=== PATIENT | female | born 1990 | race Caucasian/White ===

== ENCOUNTER 2018-11-22 18:06 | Emergency (ER) | payer MEDICAID, OTHER ==
[~2018-11-22] VITALS: Ht 152.4 cm; Wt 68.0 kg
[~2018-11-22 18:06] MED LIST: PREN-234 PO
[2018-11-22 18:28] VITALS: BP 121/70
--- NOTE | 2018-11-22 19:05 | NUR ---
PT BIB FAMILY FOR COUGH X3 WEEKS. PT REPORTS PRODUCTIVE COUGH WITH WHITE FROTHY SPUTUM. RR SYMMETRICAL, NON-LABORED, CRACKLES IN LEFT LOWER LOBE. PT REPORTS 7/10 THROBBING PAIN IN HEAD, THROAT, AND CHEST WITH COUGH. PT REPORTS REOCCURING FEVER X3 WEEKS, PT AFEBRILE AT THIS TIME. PT DENIES N/V/D. VSS. ER MD TO SEE PT.
[2018-11-22 20:10] VITALS: BP 124/71
--- NOTE | 2018-11-22 20:10 | NUR ---
Patient discharged with v/s stable. Written and verbal after care instructions given and explained. Patient alert, oriented and verbalized understanding of instructions. Carried with steady gait. All questions addressed prior to discharge. ID band removed. Patient advised to follow up with PMD. Rx of PREDNISONE, ZITHROMAX, ALBUTEROL, DIMETAPP, AND ALTAMIST given. Patient educated on indication of medication including possible reaction and side effects. Opportunity to ask questions provided and answered.
== END 2018-11-22 20:10 | disposition home or self-care (01) ==
LOC: MED 18:06
DX: J06.9 Acute upper respiratory infection, unspecified (principal); J98.01 Acute bronchospasm; Z90.49 Acquired absence of other specified parts of digestive tract; Z79.899 Other long term (current) drug therapy
CPT/HCPCS: 99283